=== PATIENT | female | born 1975 | race Caucasian/White ===

== ENCOUNTER → 2018-03-19 | Outpatient (CLI) | payer BC ==
--- NOTE | 2018-03-19 12:31 | Diagnostic Imaging Report ---
INDICATION: Routine screening. COMPARISON: 07/26/2016 and 02/25/2015. TECHNIQUE: 2D and 3D bilateral screening mammography was performed with CAD. FINDINGS: Scattered fibroglandular densities are identified bilaterally. The parenchymal pattern is stable. No mass is identified. No malignant appearing microcalcifications are seen. The axillae are unremarkable. IMPRESSION: No mammographic features suspicious for malignancy are identified. ACR BI-RADS Category 1: Negative. Result letter will be mailed to the patient. Note: At least 10% of breast cancer is not imaged by mammography. Dictated by: Dictated on workstation # [id number]
== END ==
LOC: RAD 08:16
PROVIDERS: ATTEND Nurse Practitioner
DX: Z12.31 Encounter for screening mammogram for malignant neoplasm of breast (principal)
CPT/HCPCS: 77067

== ENCOUNTER → 2019-04-08 | Outpatient (CLI) | payer BC ==
--- NOTE | 2019-04-08 10:00 | Diagnostic Imaging Report ---
PROCEDURE: US Thyroid. TECHNIQUE: Multiple Real-time grayscale images were obtained of the thyroid in various projections. INDICATION: Enlarged thyroid. COMPARISON: No comparison is available. FINDINGS: The right lobe of the thyroid is normal in size and echogenicity. It measures 4.9 x 1.1 x 1.4 cm. No right-sided thyroid nodules are seen. The left lobe of the thyroid is also normal in size measuring 4.6 x 2.0 x 2.4 cm. There is a large nodule in the left lobe of the thyroid. This measures 3.1 x 2.1 x 2.2 cm. This nodule is wider than tall and hyperechoic with smooth margins and no internal calcifications. The isthmus is normal. No lymphadenopathy is seen in the neck. IMPRESSION: The TI-RADS assessment of the left thyroid nodule is category 3, mildly suspicious. Fine needle aspiration is recommended given that the size is greater than 2.5 cm. Dictated by: Dictated on workstation # [id number]
--- NOTE | 2019-04-08 13:15 | Diagnostic Imaging Report ---
INDICATION: Routine screening. COMPARISON: 03/19/2018 and 07/26/2016. TECHNIQUE: 2D and 3D bilateral screening mammography was performed with CAD. FINDINGS: Scattered fibroglandular densities are identified bilaterally. The parenchymal pattern is stable. No mass or malignant appearing microcalcifications are seen. The axillae are unremarkable. IMPRESSION: No mammographic features suspicious for malignancy are identified. ACR BI-RADS Category 1: Negative. Result letter will be mailed to the patient. Note: At least 10% of breast cancer is not imaged by mammography. Dictated by: Dictated on workstation # [id number]
== END ==
LOC: RAD 08:25
PROVIDERS: ATTEND Nurse Practitioner
DX: Z12.31 Encounter for screening mammogram for malignant neoplasm of breast (principal); E04.9 Nontoxic goiter, unspecified
CPT/HCPCS: 76536; 77067

== ENCOUNTER → 2020-07-06 | Outpatient (CLI) | payer BC ==
--- NOTE | 2020-07-06 10:29 | Diagnostic Imaging Report ---
INDICATION: Routine screening. COMPARISON: 04/08/2019 and 03/19/2018. TECHNIQUE: 2D and 3D bilateral screening mammography was performed with CAD. FINDINGS: Scattered fibroglandular densities are identified bilaterally. The parenchymal pattern is stable. No mass or malignant appearing microcalcifications are seen. The axillae are unremarkable. IMPRESSION: No mammographic features suspicious for malignancy are identified. ACR BI-RADS Category 1: Negative. Result letter will be mailed to the patient. Note: At least 10% of breast cancer is not imaged by mammography. Dictated by: Dictated on workstation # [id number]
== END ==
LOC: RAD 07:45
PROVIDERS: ATTEND Nurse Practitioner
DX: Z12.31 Encounter for screening mammogram for malignant neoplasm of breast (principal)
CPT/HCPCS: 77063; 77067

== ENCOUNTER → 2021-09-12 | Outpatient (CLI) | payer BC ==
--- NOTE | 2021-09-12 09:11 | Diagnostic Imaging Report ---
INDICATION: Routine screening. COMPARISON: 07/06/2020 and 04/08/2019. TECHNIQUE: 2D and 3D bilateral screening mammography was performed with CAD. FINDINGS: Both breasts are heterogeneously dense, limiting the sensitivity of mammography. The parenchymal pattern is stable. No mass or malignant-appearing microcalcifications are seen. The axillae are unremarkable. IMPRESSION: No mammographic features suspicious for malignancy are identified. ACR BI-RADS Category 1: Negative. Result letter will be mailed to the patient. Note: At least 10% of breast cancer is not imaged by mammography. Dictated by: Dictated on workstation # [id number]
== END ==
LOC: RAD 07:30
PROVIDERS: ATTEND Surgery
DX: Z12.31 Encounter for screening mammogram for malignant neoplasm of breast (principal)
CPT/HCPCS: 77063; 77067

== ENCOUNTER → 2022-04-14 | Outpatient (CLI) | payer BC ==
--- NOTE | 2022-04-14 13:56 | Diagnostic Imaging Report ---
INDICATION: Left hip pain for two years. TIME OF EXAM: 01:49 p.m. TECHNIQUE: AP view of the pelvis and two views of the left hip were obtained. FINDINGS: Femoroacetabular alignment is normal. Joint spaces are well maintained. Femoral head and neck are intact. No fractures are seen. IMPRESSION: No acute abnormality is detected. Dictated by: Dictated on workstation # [id number]
== END ==
LOC: RAD 13:04
PROVIDERS: ATTEND Chiropractor
DX: M25.552 Pain in left hip (principal)